=== PATIENT | female | born 1985 | race African-American/Black ===

== ENCOUNTER 2021-06-19 15:57 | Outpatient (CLI) | payer OTHER | END 2021-06-19 17:16 | disposition home or self-care (01) | LOC: PRENATAL 15:57 | PROVIDERS: ATTEND Obstetrics & Gynecology Maternal & Fetal Medicine | DX: O35.0XX1 Maternal care for (suspected) central nervous system malformation in fetus, fetus 1 (principal); O35.3XX1 Maternal care for (suspected) damage to fetus from viral disease in mother, fetus 1; O98.512 Other viral diseases complicating pregnancy, second trimester; O09.522 Supervision of elderly multigravida, second trimester; O14.92 Unspecified pre-eclampsia, second trimester; Z36.89 Encounter for other specified antenatal screening; Z3A.26 26 weeks gestation of pregnancy ==

== ENCOUNTER 2021-07-10 22:05 | Outpatient (CLI) | payer OTHER ==
[2021-07-10] MEDS ORDERED: PRENATAL TABLE1 EAC1 PO (22:40)
[2021-07-10] MEDS ORDERED: CHILDREN'S ASPI81 MG PO (22:41)
== END 2021-07-11 15:18 | disposition home or self-care (01) ==
LOC: OBS/DEL 22:05
PROVIDERS: ATTEND Obstetrics & Gynecology Obstetrics
DX: O21.8 Other vomiting complicating pregnancy (principal); Z3A.28 28 weeks gestation of pregnancy; Z20.822 Contact with and (suspected) exposure to COVID-19

== ENCOUNTER 2021-08-24 19:52 | Inpatient (IN) | payer OTHER ==
[~2021-08-24] VITALS: Ht 170.2 cm; Wt 2.3 kg
[~2021-08-24 19:52] MED LIST: CHILDREN'S ASPI81 MG PO; PRENATAL TABLE1 EAC1 PO
[2021-08-24] MEDS ORDERED: PRENATAL GUMMI1 EACH PO (22:57)
== END 2021-08-29 13:20 | disposition home or self-care (01) | DRG 785 ==
LOC: LDR 19:52 → OB/GYN 08-27 13:11
PROVIDERS: ADMIT Obstetrics & Gynecology Obstetrics; ATTEND Obstetrics & Gynecology Obstetrics
PROC: 4A1HXFZ Monitoring of Products of Conception, Cardiac Rhythm, External Approach (ICD-10-PCS; 2021-08-24)
PROC: 0UB70ZZ Excision of Bilateral Fallopian Tubes, Open Approach (ICD-10-PCS; 2021-08-26)
PROC: 10D00Z1 Extraction of Products of Conception, Low, Open Approach (ICD-10-PCS; principal; 2021-08-26 10:00)
DX: O14.94 Unspecified pre-eclampsia, complicating childbirth (principal); O60.14X0 Preterm labor third trimester with preterm delivery third trimester, not applicable or unspecified; O34.211 Maternal care for low transverse scar from previous cesarean delivery; Z30.2 Encounter for sterilization; Z3A.35 35 weeks gestation of pregnancy; Z37.0 Single live birth